=== PATIENT | male | born 1970 | race Caucasian/White ===

== ENCOUNTER → 2019-07-07 | Outpatient (CLI) | payer OTHER | LOC: CAT 08:48 | DX: Z13.6 Encounter for screening for cardiovascular disorders (principal); I25.10 Atherosclerotic heart disease of native coronary artery without angina pectoris; E78.00 Pure hypercholesterolemia, unspecified ==

== ENCOUNTER → 2021-03-18 | Outpatient (CLI) | payer OTHER | LOC: ULTRA 08:14 | PROVIDERS: ATTEND Contractor | DX: I87.2 Venous insufficiency (chronic) (peripheral) (principal) ==